=== PATIENT | female | born 1980 | race Native Hawaiian/Other Pacific Islander ===

== ENCOUNTER 2019-07-02 11:06 | Day surgery (SDC) | payer OTHER ==
[~2019-07-02] VITALS: Ht 162.6 cm; Wt 134.3 kg
== END 2019-07-02 12:20 | disposition home or self-care (01) ==
LOC: OR 11:06
PROC: 3E0R33Z Introduction of Anti-inflammatory into Spinal Canal, Percutaneous Approach (ICD-10-PCS; principal; 2019-07-02)
PROC: 3E0R3BZ Introduction of Anesthetic Agent into Spinal Canal, Percutaneous Approach (ICD-10-PCS; 2019-07-02)
DX: M53.3 Sacrococcygeal disorders, not elsewhere classified (principal); M46.1 Sacroiliitis, not elsewhere classified
CPT/HCPCS: J1020; J3490

== ENCOUNTER 2019-07-16 08:18 | Day surgery (SDC) | payer OTHER ==
[~2019-07-16] VITALS: Ht 162.6 cm; Wt 134.3 kg
== END 2019-07-16 10:05 | disposition home or self-care (01) ==
LOC: OR 08:18
PROC: 3E0R33Z Introduction of Anti-inflammatory into Spinal Canal, Percutaneous Approach (ICD-10-PCS; principal; 2019-07-16)
PROC: 3E0R3BZ Introduction of Anesthetic Agent into Spinal Canal, Percutaneous Approach (ICD-10-PCS; 2019-07-16)
DX: M53.3 Sacrococcygeal disorders, not elsewhere classified (principal); M46.1 Sacroiliitis, not elsewhere classified
CPT/HCPCS: J1020; J3490

== ENCOUNTER 2019-10-01 10:52 | Day surgery (SDC) | payer BC, OTHER ==
[~2019-10-01] VITALS: Ht 162.6 cm; Wt 136.1 kg
== END 2019-10-01 13:37 | disposition home or self-care (01) ==
LOC: OR 10:52
PROC: 3E0T3BZ Introduction of Anesthetic Agent into Peripheral Nerves and Plexi, Percutaneous Approach (ICD-10-PCS; principal; 2019-10-01)
PROC: 3E0T33Z Introduction of Anti-inflammatory into Peripheral Nerves and Plexi, Percutaneous Approach (ICD-10-PCS; 2019-10-01)
PROC: BR16YZZ Fluoroscopy of Lumbar Facet Joint(s) using Other Contrast (ICD-10-PCS; 2019-10-01)
DX: M47.816 Spondylosis without myelopathy or radiculopathy, lumbar region (principal)
CPT/HCPCS: J1100; J2001

== ENCOUNTER 2019-11-12 08:56 | Day surgery (SDC) | payer BC, OTHER | END 2019-11-12 11:25 | disposition home or self-care (01) | LOC: OR 08:56 | PROC: 3E0T3BZ Introduction of Anesthetic Agent into Peripheral Nerves and Plexi, Percutaneous Approach (ICD-10-PCS; principal; 2019-11-12) | PROC: 3E0T33Z Introduction of Anti-inflammatory into Peripheral Nerves and Plexi, Percutaneous Approach (ICD-10-PCS; 2019-11-12) | DX: M47.816 Spondylosis without myelopathy or radiculopathy, lumbar region (principal) | CPT/HCPCS: J1100; J2001 ==

== ENCOUNTER 2020-06-02 08:28 | Day surgery (SDC) | payer OTHER ==
[~2020-06-02] VITALS: Ht 162.6 cm; Wt 149.7 kg
== END 2020-06-02 12:15 | disposition home or self-care (01) ==
LOC: OR 08:28
PROC: 3E0T3TZ Introduction of Destructive Agent into Peripheral Nerves and Plexi, Percutaneous Approach (ICD-10-PCS; principal; 2020-06-02)
PROC: BR16YZZ Fluoroscopy of Lumbar Facet Joint(s) using Other Contrast (ICD-10-PCS; 2020-06-02)
DX: M47.816 Spondylosis without myelopathy or radiculopathy, lumbar region (principal)
CPT/HCPCS: J2001